=== PATIENT | female | born 1975 | race Two or more races ===

== ENCOUNTER 2023-12-21 19:39 | Emergency (ER) | payer OTHER ==
[~2023-12-21] VITALS: Ht 162.6 cm; Wt 88.0 kg
[2023-12-21 19:39] VITALS: BP 139/80; PULSE 88; RESP 16; TEMP 97.8; O2SAT 99
[2023-12-21] MEDS ORDERED: CYCL-837 PO (22:22)
[2023-12-21] MEDS ORDERED: ACET500T58 PO (22:22)
[2023-12-21] MEDS ORDERED: ONDANSETRON ODT 4 MG TAB PO ONE (22:45)
[2023-12-21] MEDS ORDERED: HYDROcodone-ACET 5/325MG TAB PO ONE (22:45)
== END 2023-12-21 23:04 | disposition home or self-care (01) ==
LOC: EDBD 19:39 → ER 19:39
DX: S29.012A Strain of muscle and tendon of back wall of thorax, initial encounter (principal); S39.012A Strain of muscle, fascia and tendon of lower back, initial encounter; S30.1XXA Contusion of abdominal wall, initial encounter; M54.2 Cervicalgia; I10 Essential (primary) hypertension; Z79.899 Other long term (current) drug therapy; V49.49XA Driver injured in collision with other motor vehicles in traffic accident, initial encounter; Y93.I9 Activity, other involving external motion; Y92.89 Other specified places as the place of occurrence of the external cause; Y99.8 Other external cause status
CPT/HCPCS: 99283; Q0162